=== PATIENT | male | born 1965 | race Caucasian/White ===

== ENCOUNTER → 2023-04-25 | Outpatient (CLI) | payer BC ==
--- NOTE | 2023-04-25 08:51 | XR ---
EXAMINATION TYPE: XR shoulder complete RT DATE OF EXAM: 04/25/2023 8:47 AM INDICATION: Patient age:Male; 58 years old; Reason for study: M25.511 RIGHT SHOULDER PAIN; COMPARISON: None TECHNIQUE: The right shoulder was examined in AP, internally rotated and scapular Y projections. . FINDINGS: No evidence of acute osseous pathology, joint dislocation, or soft tissue swelling. The remaining por tions of the visualized chest are unremarkable. IMPRESSION: No acute osseous pathology.
== END | disposition home or self-care (01) ==
LOC: RADXRMAIN 08:31
PROVIDERS: ATTEND Family Medicine
DX: M25.511 Pain in right shoulder (principal)

== ENCOUNTER → 2023-04-25 | Outpatient (CLI) | payer BC ==
[2023-04-25 13:45] LABS: Basophils # (A) 0.08 X 10*3/uL (0.00-0.10); Basophils % (A) 0.9 %; Eosinophils # (A) 0.17 X 10*3/uL (0.04-0.35); Eosinophils % (A) 1.8 %; HCT 48.6 % (39.6-50.0); Lymphocytes # (A) 2.18 X 10*3/uL (0.90-5.00); Lymphocytes % (A) 23.6 %; MCH 29.5 pg (27.0-32.0); MCHC 32.9 g/dL (32.0-37.0); MCV 89.7 FL (80.0-97.0); Mean Platelet Volume 11.5 FL (9.5-12.2); Monocytes # (A) 0.61 X 10*3/uL (0.20-1.00); Monocytes % (A) 6.6 %; NRBC Per 100 WBC 0 X 10*3/uL (0.00-0.01); Neutrophils # (A) 6.13 X 10*3/uL (1.80-7.70); Neutrophils % (A) 66.4 %; Platelet Count 199 X 10*3/uL (140-440); RBC 5.42 X 10*6/uL (4.40-5.60); RDW 12.8 % (11.5-14.5); WBC 9.23 X 10*3/uL (4.50-10.00)
[2023-04-25 13:54] LABS: ALT 28 U/L (10-49); AST 19 U/L (14-35); Albumin 4.1 g/dL (3.8-4.9); Albumin/Globulin Ratio 1.86 Ratio (1.60-3.17); Alkaline Phosphatase 81 U/L (41-126); BUN/Creat Ratio 12.56 Ratio (12.00-20.00); Blood Urea Nitrogen 11.3 mg/dL (9.0-27.0); Calcium 8.9 mg/dL (8.7-10.3); Carbon Dioxide 23.3 mmol/L (21.6-31.8); Chloride 107 mmol/L (96-109); Chol/HDL Ratio 6.13 Ratio; Globulin 2.2 g/dL (1.6-3.3); Glucose 91 mg/dL (70-110); LDL Cholesterol,Calculated 135.6 mg/dL (0.0-131.0); Potassium 4.4 mmol/L (3.5-5.5); Prostate Specific Antigen 8.24 ng/mL (0.000-3.500); Sodium 141 mmol/L (135-145); Total Bilirubin 0.3 mg/dL (0.3-1.2); Total Protein 6.3 g/dL (6.2-8.2)
== END | disposition home or self-care (01) ==
LOC: LABWHC1 08:05
PROVIDERS: ATTEND Family Medicine
DX: Z00.00 Encounter for general adult medical examination without abnormal findings (principal); Z12.11 Encounter for screening for malignant neoplasm of colon; Z12.5 Encounter for screening for malignant neoplasm of prostate; Z13.29 Encounter for screening for other suspected endocrine disorder; I10 Essential (primary) hypertension; K21.9 Gastro-esophageal reflux disease without esophagitis; F31.30 Bipolar disorder, current episode depressed, mild or moderate severity, unspecified; M25.511 Pain in right shoulder
CPT/HCPCS: 36415; 80053; 80061; 84153; 84443; 85025

== ENCOUNTER 2023-06-29 10:55 | Day surgery (SDC) | payer BC ==
[2023-06-23 08:57] VITALS: BMI 30.1
[2023-06-29 12:24] VITALS: RESP 16; TEMP 97.4
[2023-06-29] MEDS ORDERED: LACTATED RINGERS 1,000 ML IV ONE (12:28)
[2023-06-29] MEDS ORDERED: PROPOFOL 10 MG/ML 20 ML VIAL IV ONE (12:46)
--- NOTE | 2023-06-29 12:59 | P.GSHP ---
History of Present Illness H&P Date: 06/29/23 Chief Complaint: screening colonoscopy this is a 58-year-old male presents today for screening colonoscopy. Patient denies any significant GI complaints. Past Medical History Past Medical History: GERD/Reflux, Hearing Disorder / Deafness, Hyperlipidemia, Hypertension Additional Past Medical History / Comment(s): Some hearing loss. "Grinding in right knee." History of Any Multi-Drug Resistant Organisms: None Reported Past Surgical History: Hernia Repair Past Anesthesia/Blood Transfusion Reactions: No Reported Reaction Past Psychological History: No Psychological Hx Reported Smoking Status: Current every day smoker Past Alcohol Use History: Rare Additional Past Alcohol Use History / Comment(s): Smokes 3 cigarettes a day, started 3 months ago. Past Drug Use History: None Reported - Past Family History Mother Family Medical History: Cancer Additional Family Medical History / Comment(s): Esophageal cancer. Medications and Allergies Home Medications Medication Instructions Recorded Confirmed Type Aspirin [Adult Low Dose Aspirin EC] 81 mg PO DAILY 06/23/23 06/23/23 History Escitalopram Oxalate [Lexapro] 10 mg PO QAM 06/23/23 06/23/23 History Nebivolol HCl 10 mg PO QAM 06/23/23 06/23/23 History Omeprazole [PriLOSEC] 40 mg PO QAM 06/23/23 06/23/23 History Allergies Allergy/AdvReac Type Severity Reaction Status Date / Time No Known Allergies Allergy Verified 06/29/23 12:16 Surgical - Exam Vital Signs Temp Pulse Resp BP Pulse Ox 97.4 F L 86 16 139/82 97 06/29/23 12:17 06/29/23 12:17 06/29/23 12:17 06/29/23 12:17 06/29/23 12:17 - General well developed, well nourished, no distress - Eyes PERRL - ENT normal pinna - Neck no masses - Respiratory normal expansion - Cardiovascular Rhythm: regular - Abdomen Abdomen: soft, non tender Assessment and Plan Assessment: we'll perform screening colonoscopy
--- NOTE | 2023-06-29 13:02 | P.OP ---
Date of Procedure: 06/29/23 Preoperative Diagnosis: screening colonoscopy Postoperative Diagnosis: external hemorrhoids Procedure(s) Performed: colonoscopy Anesthesia: MAC Surgeon: Pankaj Olivares Pathology: none sent Condition: stable Disposition: PACU Operative Findings: internal and external hemorrhoids Description of Procedure: patient's placed on the endoscopy table in the lateral position. He received IV sedation. Digital rectal exam was performed. This revealed hemorrhoids. The flexible colonoscope was then placed patient anus and passed throughout the entire colon. The ileocecal valve was visualized. The cecum, ascending and transverse colon appeared normal. The descending and sigmoid colon appeared normal. The scope was then brought back the rectum and this appeared normal. Scope withdrawn for patient.
[2023-06-29 13:36] VITALS: BP 147/77; PULSE 89
== END 2023-06-29 13:49 | disposition home or self-care (01) ==
LOC: ORWHC2ENDO 10:55
PROVIDERS: ATTEND Surgery
DX: Z12.11 Encounter for screening for malignant neoplasm of colon (principal); K64.4 Residual hemorrhoidal skin tags; K21.9 Gastro-esophageal reflux disease without esophagitis; E78.5 Hyperlipidemia, unspecified; I10 Essential (primary) hypertension; H91.90 Unspecified hearing loss, unspecified ear; F17.210 Nicotine dependence, cigarettes, uncomplicated; F10.90 Alcohol use, unspecified, uncomplicated; Z79.82 Long term (current) use of aspirin; Z79.899 Other long term (current) drug therapy; Z80.8 Family history of malignant neoplasm of other organs or systems; Z98.890 Other specified postprocedural states
CPT/HCPCS: 45378; J2704

== ENCOUNTER 2024-03-19 23:40 | Observation (INO) | payer BC ==
[2024-03-20] MEDS: ONDANSETRON 4 MG/2 ML VIAL IVP STA (00:11)
[2024-03-20] MEDS: HYDROmorphone 1 MG/ML 1 ML SYRINGE IVP STA (00:13)
[2024-03-20 00:18] LABS: Basophils # (A) 0.1 k/uL (0-0.2); Basophils % (A) 1 %; Eosinophils # (A) 0.1 k/uL (0-0.7); Eosinophils % (A) 1 %; HCT 49.8 % (39.0-53.0); HGB 16.4 gm/dL (13.0-17.5); Lymphocytes # (A) 2.4 k/uL (1.0-4.8); Lymphocytes % (A) 19 %; MCH 29.6 pg (25.0-35.0); MCHC 32.8 g/dL (31.0-37.0); MCV 90.3 fL (80.0-100.0); Mean Platelet Volume 8.5; Monocytes # (A) 0.6 k/uL (0-1.0); Monocytes % (A) 5 %; Neutrophils % (A) 72 %; Platelet Count 230 k/uL (150-450); RBC 5.52 m/uL (4.30-5.90); RDW 13.4 % (11.5-15.5); WBC 12.5 k/uL (3.8-10.6)
[2024-03-20 00:30] LABS: ALT 25 U/L (4-49); African American GFR (CKD) >90 (>60 ml/min/1.73 sqM); Albumin 4.4 g/dL (3.5-5.0); Anion Gap 9 mmol/L; Blood Urea Nitrogen 16 mg/dL (9-20); Calcium 9.6 mg/dL (8.4-10.2); Carbon Dioxide 23 mmol/L (22-30); Chloride 107 mmol/L (98-107); Glucose 141 mg/dL (74-99); Lipase 124 U/L (23-300); Magnesium 1.9 mg/dL (1.6-2.3); Non-African American GFR(CKD) >90 (>60 ml/min/1.73 sqM); Sodium 139 mmol/L (137-145); Total Bilirubin 0.8 mg/dL (0.2-1.3); Total Protein 6.9 g/dL (6.3-8.2)
[2024-03-20 00:38] LABS: NT-Pro-B-Type Natriuretic Pept 31 pg/mL
[2024-03-20 00:41] LABS: AST 28 U/L (17-59); Alkaline Phosphatase 72 U/L (38-126); Potassium 4.1 mmol/L (3.5-5.1)
[2024-03-20 01:27] LABS: Partial Thromboplastin Time 26.4 sec (22.0-30.0); Prothrombin Time 10.6 sec (10.0-12.5)
--- NOTE | 2024-03-20 01:41 | CT ---
EXAM: CT Angiography Chest With and without Intravenous Contrast CLINICAL HISTORY: ITS.REASON CT Reason: dissection TECHNIQUE: Axial computed tomographic angiography images of the chest with and without intravenous contrast. CTDI is 30.65 mGy and DLP is 889.95 mGy-cm. This CT exam was performed using one or more of the following dose reduction techniques: automated exposure control, adjustment of the mA and/or kV according to patient size, and/or use of iterative reconstruction technique. MIP reconstructed images were created and reviewed. COMPARISON: None. FINDINGS: Pulmonary arteries: Normal caliber main/central pulmonary arteries. No pulmonary embolism. Aorta: No acute findings. No thoracic aortic aneurysm. No thoracic aortic dissection. Lungs: Central airways are patent. Moderately severe upper lobes predominant centrilobular emphysema. No mass. No consolidation. Pleural space: Unremarkable. No significant effusion. No pneumothorax. Heart: Unremarkable. No cardiomegaly. No significant pericardial effusion. No evidence of RV dysfunction. Bones/joints: No acute or suspicious osseous findings. No vertebral subluxation. Soft tissues: Unremarkable. Lymph nodes: Multiple small mediastinal and bilateral hilar lymph nodes. No lymphadenopathy by CT size criteria. Other findings: Low-density left thyroid lobe nodules.. IMPRESSION: No aortic aneurysm, aortic dissection or pulmonary embolism. Moderately severe centrilobular pulmonary emphysema. Multiple small probably reactive mediastinal and bilateral hilar lymph nodes. EXAM: CT Angiography Abdomen and Pelvis With and without Intravenous Contrast CLINICAL HISTORY: ITS.REASON CT Reason: dissection TECHNIQUE: Axial computed tomographic angiography images of the abdomen and pelvis with intravenous contrast. CTDI is 30.65 mGy and DLP is 889.95 mGy-cm. This CT exam was performed using one or more of the following dose reduction techniques: automated exposure control, adjustment of the mA and/or kV according to patient size, and/or use of iterative reconstruction technique. MIP reconstructed images were created and reviewed. COMPARISON: No relevant prior studies available. FINDINGS: VASCULATURE: Aorta: Mildly tortuous abdominal aorta. No acute findings. No abdominal aortic aneurysm. No dissection. Celiac trunk and mesenteric arteries: No acute findings. No occlusion or significant stenosis. Renal arteries: No acute findings. No occlusion or significant stenosis. Iliac arteries: No acute findings. No occlusion or significant stenosis. ABDOMEN: Liver: Diffuse steatosis. There are several 2-60 mm size cystic lesions seen throughout the liver. No discernible enhancing solid mass. Gallbladder and bile ducts: A somewhat distended gallbladder with mild uniform wall enhancement and small pericholecystic fluid seen (series 501 image 183). No calcified stones. No ductal dilation. Pancreas: Unremarkable. No ductal dilation. No mass. Spleen: A few small subcentimeter splenic cysts. No splenomegaly. Adrenals: Unremarkable. No mass. Kidneys and ureters: A 2 cm left renal cortical cyst. A few tiny/punctate left renal calculi.. No hydronephrosis. No solid mass. No ureteral or bladder calculi identified. Stomach and bowel: A markedly distended stomach filled with ingested food debris, fluid and gas. Small and large bowel is normal in caliber.. No mucosal thickening. PELVIS: Appendix: No findings to suggest acute appendicitis. Bladder: Unremarkable. No mass. Reproductive: Moderately enlarged prostrate. Small rounded glandular calcifications. ABDOMEN and PELVIS: Intraperitoneal space: No significant fluid collection. No free air. Bones/joints: No acute fracture. No dislocation. Multilevel mild degenerative thoracolumbar spondylitic changes. Soft tissues: Unremarkable. A small/moderate size fat-containing left inguinal hernia. Lymph nodes: Unremarkable. No enlarged lymph nodes. IMPRESSION: Unremarkable aorta/arteries arteries of the abdomen and pelvis. No abdominal aortic dissection. A distended gallbladder, with uniform mild wall enhancement and pericholecystic fluid seen. Right upper quadrant abdominal ultrasound recommended. Diffuse hepatic steatosis. Several variable size cysts are seen throughout the liver. Few small splenic cysts. A 2 cm left renal cortical cyst. Few tiny left renal nonobstructive calculi. No hydronephrosis. Moderate prostatomegaly. Recommend A markedly distended stomach, question gastroparesis versus outlet obstruction. The need for nuclear gastric emptying study can be determined clinically. A small/moderate size fat-containing left inguinal hernia.
--- NOTE | 2024-03-20 02:36 | ED ---
Chest Pain HPI - General Chief Complaint: Chest Pain Stated Complaint: CP Time Seen by Provider: 03/19/24 23:50 Source: patient Mode of arrival: ambulatory Limitations: no limitations - History of Present Illness Initial Comments: 59-year-old male presents emergency department reporting chest pain. Reports that it is been going on for the past 3 hours. It is getting worse in intensity. He states it is radiating across his chest and goes straight and through his back. It makes him nauseated and he has been dry heaving. Also reports to diaphoresis. The pain is radiating into his low abdomen. Admits to numbness and tingling in his. No cardiac history. Denies fevers. No history of similar in the past. No other alleviating, precipitating or modifying factors - Related Data Home Medications Medication Instructions Recorded Confirmed Aspirin [Adult Low Dose Aspirin EC] 81 mg PO DAILY 06/23/23 03/20/24 Nebivolol HCl 10 mg PO DAILY 06/23/23 03/20/24 Lansoprazole [Prevacid] 30 mg PO DAILY 03/20/24 03/20/24 Tamsulosin [Flomax] 0.4 mg PO DAILY 03/20/24 03/20/24 Previous Rx's Medication Instructions Recorded Amoxic-Pot Clav 875-125Mg 1 tab PO Q12HR 3 Days #6 tab 03/23/24 [Augmentin 875-125] HYDROcodone/APAP 5-325MG [[place] 1 tab PO Q6HR PRN 3 Days #12 tab 03/23/24 5-325] Allergies Allergy/AdvReac Type Severity Reaction Status Date / Time No Known Allergies Allergy Verified 03/20/24 09:34 Review of Systems ROS Statement: Those systems with pertinent positive or pertinent negative responses have been documented in the HPI. ROS Other: All systems not noted in ROS Statement are negative. Past Medical History Past Medical History: GERD/Reflux, Hearing Disorder / Deafness, Hyperlipidemia, Hypertension Additional Past Medical History / Comment(s): Some hearing loss. "Grinding in right knee." History of Any Multi-Drug Resistant Organisms: None Reported Past Surgical History: Hernia Repair Past Anesthesia/Blood Transfusion Reactions: No Reported Reaction Past Psychological History: No Psychological Hx Reported Smoking Status: Current every day smoker Past Alcohol Use History: Rare Past Drug Use History: None Reported - Past Family History Mother Family Medical History: Cancer Additional Family Medical History / Comment(s): Esophageal cancer. General Exam Limitations: no limitations General appearance: alert, in distress Head exam: Present: atraumatic, normocephalic, normal inspection Eye exam: Present: normal appearance, PERRL, EOMI. Absent: scleral icterus, conjunctival injection, periorbital swelling ENT exam: Present: normal exam, mucous membranes moist Neck exam: Present: normal inspection. Absent: tenderness, meningismus, lymphadenopathy Respiratory exam: Present: normal lung sounds bilaterally. Absent: respiratory distress, wheezes, rales, rhonchi, stridor Cardiovascular Exam: Present: tachycardia GI/Abdominal exam: Present: tenderness Back exam: Present: normal inspection Neurological exam: Present: alert, oriented X3, CN II-XII intact Psychiatric exam: Present: normal affect, normal mood Course Vital Signs 03/19/24 03/20/24 03/20/24 23:41 00:52 01:31 Temperature 98.8 F 98.1 F Pulse Rate 116 H 105 H 101 H Respiratory 20 20 20 Rate Blood Pressure 166/114 126/86 117/69 O2 Sat by Pulse 100 96 94 L Oximetry 03/20/24 03/20/24 03/20/24 02:17 04:43 06:00 Temperature 98.5 F Pulse Rate 98 96 99 Respiratory 19 19 18 Rate Blood Pressure 130/73 122/78 106/75 O2 Sat by Pulse 94 L 96 94 L Oximetry 03/20/24 03/20/24 10:29 11:18 Temperature 98.3 F 98.2 F Pulse Rate 90 82 Respiratory 18 18 Rate Blood Pressure 108/82 107/81 O2 Sat by Pulse 95 96 Oximetry Chest Pain MDM - MDM Was pt. sent in by a medical professional or institution (, PA, CHERRY SORTER, urgent care, hospital, or intermediate...) When possible be specific @ -No Did you speak to anyone other than the patient for history (EMS, parent, family, police, friend...)? What history was obtained from this source @ -No Did you review nursing and triage notes (agree or disagree)? Why? @ -I reviewed and agree with nursing and triage notes Were old charts reviewed (outside hosp., previous admission, EMS record, old EKG, old radiological studies, urgent care reports/EKG's, intermediate records)? Report findings @ -No old charts were reviewed Differential Diagnosis (chest pain, altered mental status, abdominal pain women, abdominal pain men, vaginal bleeding, weakness, fever, dyspnea, syncope, headache, dizziness, GI bleed, back pain, seizure, CVA, palpatations, mental health, musculoskeletal)? @ -Differential Chest Pain: Stable Angina, Unstable Angina, STEMI, NSTEMI Aortic Dissection, Pneumothorax, Musculoskeletal, Esophageal Spasm GERD, Cholecystitis, Pancreatitis, Zoster, this is not meant to be an all-inclusive list. EKG interpreted by me (3pts min.). @ -Yes and demonstrates sinus tachycardia with a rate of 112. IL interval 184. QRS 103. QTc of 391. No acute ST segment elevations or depressions X-rays interpreted by me (1pt min.). @ -None done CT interpreted by me (1pt min.). @ -Yes and demonstrates a markedly distended gallbladder and stomach U/S interpreted by me (1pt. min.). @ -None done What testing was considered but not performed or refused? (CT, X-rays, U/S, labs)? Why? @ -None What meds were considered but not given or refused? Why? @ -None Did you discuss the management of the patient with other professionals (professionals i.e. , PA, CHERRY SORTER, lab, RT, psych nurse, health social work professor, haulage engine operator, teacher, adult probation officer, nurse outreach case manager)? Give summary @ -Spoke with Dr. Colunga for admission Was smoking cessation discussed for >3mins.? @ -No Was critical care preformed (if so, how long)? @ -No Were there social determinants of health that impacted care today? How? (Homelessness, low income, unemployed, alcoholism, drug addiction, transportation, low edu. Level, literacy, decrease access to med. care, fdc, rehab)? @ -No Was there de-escalation of care discussed even if they declined (Discuss DNR or withdrawal of care, Hospice)? DNR status @ -No What co-morbidities impacted this encounter? (DM, HTN, Smoking, COPD, CAD, Cancer, CVA, ARF, Chemo, Hep., AIDS, mental health diagnosis, sleep apnea, morbid obesity)? @ -None Was patient admitted / discharged? Hospital course, mention meds given and route, prescriptions, significant lab abnormalities, going to OR and other pertinent info. @ -Upon arrival patient was seen and evaluated in room 15. Thorough history and physical exam was performed. Patient arrives, clutching his chest reporting significant pain to his arms and back. Because this IV was established and the patient was sent for CT without laboratory results as I am concerned for dissection. Laboratory studies do return and CT results are reviewed. Patient was given pain and nausea medications and does have alleviation in his symptoms. Appears that the patient's first troponin is negative. He does have a distended gallbladder and stomach. He is given an empiric dose of antibiotics to cover for cholecystitis and ultrasound is ordered for the morning. Spoke with Dr. Colunga to admit the patient Undiagnosed new problem with uncertain prognosis? @ -No Drug Therapy requiring intensive monitoring for toxicity (Heparin, Nitro, Insulin, Cardizem)? @ -No Were any procedures done? @ -No Diagnosis/symptom? @ -Acute chest pain, suspected acute cholecystitis, possible gastric outlet obstruction Acute, or Chronic, or Acute on Chronic? @ -Acute Uncomplicated (without systemic symptoms) or Complicated (systemic symptoms)? @ -Complicated Side effects of treatment? @ -No Exacerbation, Progression, or Severe Exacerbation? @ -No Poses a threat to life or bodily function? How? (Chest pain, [place], [place], pneumonia, PE, COPD, DKA, ARF, appy, cholecystitis, CVA, Diverticulitis, Homicidal, Suicidal, threat to staff... and all critical care pts) @ -No Disposition Clinical Impression: Chest pain, Cholecystitis Disposition: ADMITTED IP TO THIS [facility] Condition: Stable Is patient prescribed a controlled substance at d/c from ED?: No Time of Disposition: 02:30 Decision to Admit Reason: Admit from EC Decision Date: 03/20/24 Decision Time: 02:30
[2024-03-20] MEDS ORDERED: NALOXONE 0.4 MG/ML 1 ML VIAL IV PRN (02:41)
[2024-03-20] MEDS: SODIUM CHLORIDE 0.9% 1,000 ML IV SCH (02:52)
--- NOTE | 2024-03-20 06:20 | P.CON ---
Consult Note - . Consult date: 03/20/24 Assessment/Plan:: 59-year-old male presents emergency department reporting chest pain. Reports that it is been going on for the past 3 hours. It is getting worse in intensity. He states it is radiating across his chest and goes straight and through his back. It makes him nauseated and he has been dry heaving. Also reports to diaphoresis. The pain is radiating into his low abdomen. Admits to numbness and tingling in his. No cardiac history. Denies fevers. No history of similar in the past. No other alleviating, precipitating or modifying factors. CT-AP shows gallstones and some free fluid around the Gallbladder. Review of Systems ROS Statement: Those systems with pertinent positive or pertinent negative responses have been documented in the HPI. ROS Other: All systems not noted in ROS Statement are negative. Past Medical History Past Medical History: GERD/Reflux, Hearing Disorder / Deafness, Hyperlipidemia, Hypertension Additional Past Medical History / Comment(s): Some hearing loss. "Grinding in right knee." History of Any Multi-Drug Resistant Organisms: None Reported Past Surgical History: Hernia Repair Past Anesthesia/Blood Transfusion Reactions: No Reported Reaction Past Psychological History: No Psychological Hx Reported Smoking Status: Current every day smoker Past Alcohol Use History: Rare Past Drug Use History: None Reported - Past Family History Mother Family Medical History: Cancer Additional Family Medical History / Comment(s): Esophageal cancer. General Exam VSS General-NAD CVS-RRR Lungs-NLB Abdomen-soft, NTND Ext- no edema 59 year old male presenting with Chest Pain. CT-Abdomen shows Gallstones and Gallbladder Wall Thickening -RUQ US ordered -CLD, NPO/midnight -Zosyn -Pain and Nausea Control -AM labs Serge [facility] [phone]
[2024-03-20] MEDS: PIPERACILLIN-TAZOBACTAM 3.375 GM in SODIUM CHLORIDE 0.9% 100 ML IVPB SCH (08:26)
[2024-03-20] MEDS: PANTOPRAZOLE 40 MG/10 ML VIAL IV SCH (08:26)
--- NOTE | 2024-03-20 10:08 | US ---
EXAMINATION TYPE: US gallbladder DATE OF EXAM: 03/20/2024 COMPARISON: CTa 03/20/2024 CLINICAL INDICATION: Male, 59 years old with history of possible cholecystitis; Possible cholecystiti s. Pain in the abdomen and chest x 11.5 hours. TECHNIQUE: Grayscale and color Doppler imaging of the right upper quadrant. FINDINGS: EXAM MEASUREMENTS: Liver Length: 15.7 cm Gallbladder Wall: 0.38 cm CBD: Obscured Right Kidney: 11.1 x 6.8 x 5.8 cm BINDERY MACHINE SETTER NOTES: Exam is limited due to gas. Pancreas: Hyperechoic. Tail not well seen. Duct seen at body measures 2 mm Liver: Coarse with increased echogenicity. Multiple anechoic and complex areas seen. Largest in left lobe= 1.4 x 1.9 x 1.1 cm. Largest in right lobe= 5.5 x 5.4 x 4.6 cm. Gallbladder: Distended measuring 9.6 cm in length and 4.0 cm in width. *Wall appears slightly thic kened. Appearance of fluid adjacent to gallbladder= 3.8 x 1.0 x 0.4 cm. Evidence for sonographic Heredia's sign: Yes CBD: Obscured Right Kidney: No hydronephrosis or masses seen Cortex appears thin. IMPRESSION: 1. Hepatic cysts 2. Small amount of fluid adjacent to thickened gallbladder wall. Correlate for acalculus cholecystiti s. [facility], Workstation: [facility], 03/20/2024 10:06 AM
--- NOTE | 2024-03-20 11:56 | P.HPIM ---
History of Present Illness H&P Date: 03/20/24 Chief Complaint: Chest and abdominal pain This is a 59-year-old male well-known to my practice. He is a history of hypertension GERD and BPH. He reports yesterday evening approximately 8:30 PM he began experiencing sudden chest and abdominal pain along with back pain. He indicates he was short of breath and feel shaky and sweaty. it Worsened in severity prompting him to came the emergency room and was given pain medication which resolved his symptoms quickly. He reports he still has some abdominal tenderness. This AMA he has no complaints of abdominal tenderness. He denies any chest pain or shortness of breath this time. Review of Systems All systems: negative Past Medical History Past Medical History: GERD/Reflux, Hearing Disorder / Deafness, Hyperlipidemia, Hypertension Additional Past Medical History / Comment(s): Some hearing loss. "Grinding in right knee." History of Any Multi-Drug Resistant Organisms: None Reported Past Surgical History: Hernia Repair Past Anesthesia/Blood Transfusion Reactions: No Reported Reaction Past Psychological History: No Psychological Hx Reported Smoking Status: Current every day smoker Past Alcohol Use History: Rare Past Drug Use History: None Reported - Past Family History Mother Family Medical History: Cancer Additional Family Medical History / Comment(s): Esophageal cancer. Medications and Allergies Home Medications Medication Instructions Recorded Confirmed Type Aspirin [Adult Low Dose Aspirin EC] 81 mg PO DAILY 06/23/23 03/20/24 History Nebivolol HCl 10 mg PO DAILY 06/23/23 03/20/24 History Lansoprazole [Prevacid] 30 mg PO DAILY 03/20/24 03/20/24 History Tamsulosin [Flomax] 0.4 mg PO DAILY 03/20/24 03/20/24 History Allergies Allergy/AdvReac Type Severity Reaction Status Date / Time No Known Allergies Allergy Verified 03/20/24 09:34 Physical Exam Vitals: Vital Signs Temp Pulse Pulse Resp BP BP Pulse Ox 03/20/24 11:33 97.7 F 88 18 132/78 92 L 03/20/24 11:18 98.2 F 82 18 107/81 96 03/20/24 10:29 98.3 F 90 18 108/82 95 03/20/24 06:00 98.5 F 99 18 106/75 94 L 03/20/24 04:43 96 19 122/78 96 03/20/24 02:17 98 19 130/73 94 L 03/20/24 01:31 101 H 20 117/69 94 L 03/20/24 00:52 98.1 F 105 H 20 126/86 96 03/19/24 23:41 98.8 F 116 H 20 166/114 100 Intake and Output 03/19/24 03/20/24 03/20/24 22:59 06:59 14:59 Other: Weight 95.254 kg GENERAL: Well-appearing, well-nourished and in no acute distress. HEAD: Atraumatic, normocephalic. EYES: Pupils equal round and reactive to light, extraocular movements intact, sclera anicteric, conjunctiva are normal. ENT:nares patent, oropharynx clear without exudates. Moist mucous membranes. NECK: Normal range of motion, supple without lymphadenopathy or JVD, no thyromegaly LUNGS: Breath sounds clear to auscultation bilaterally and equal. No wheezes rales or rhonchi. HEART: Regular rate and rhythm without murmurs, rubs or gallops.S1S2 Normal ABDOMEN: Soft, r, normoactive bowel sounds. No guarding, no rebound. No ma sses appreciated. Tenderness to the right upper quadrant and suprapubic area. EXTREMITIES: Normal range of motion, no pitting or edema. No clubbing or cyanosis. NEUROLOGICAL: Cranial nerves II through XII grossly intact. Normal speech, normal gait. PSYCH: Normal mood, normal affect. SKIN: Warm, Dry, normal turgor, no rashes or lesions noted. Results CBC & Chem 7: 03/20/24 00:08 03/20/24 00:08 Labs: Abnormal Lab Results - Last 24 Hours (Table) 03/20/24 03/20/24 Range/Units 00:08 00:08 WBC 12.5 H (3.8-10.6) k/uL Neutrophils # 9.0 H (1.3-7.7) k/uL Glucose 141 H (74-99) mg/dL CT scan - chest: report reviewed US - abdomen: report reviewed Thrombosis Risk Factor Assmnt - DVT/VTE Prophylaxis DVT/VTE Prophylaxis: Low risk, early ambulation encouraged - Choose All That Apply Each Factor Represents 1 point: Age 41-60 years, Obesity (BMI >25) Thrombosis Risk Factor Assessment Total Risk Factor Score: 2 Thrombosis Risk Factor Assessment Level: Low Risk Assessment and Plan (1) Cholecystitis Current Visit: Yes Status: Acute Code(s): K81.9 - CHOLECYSTITIS, UNSPECIFIED SNOMED Code(s): 54118022 (2) Essential (primary) hypertension Current Visit: Yes Status: Acute Code(s): I10 - ESSENTIAL (PRIMARY) HYPERTENSION SNOMED Code(s): 40194260 (3) Gastro-esophageal reflux disease without esophagitis Current Visit: Yes Status: Acute Code(s): K21.9 - GASTRO-ESOPHAGEAL REFLUX DISEASE WITHOUT ESOPHAGITIS SNOMED Code(s): 009215097 (4) BPH loc w urin obs/LUTS Current Visit: Yes Status: Acute Code(s): N40.1 - BENIGN PROSTATIC HYPERPLASIA WITH LOWER URINARY TRACT SYMP SNOMED Code(s): 674574156 (5) Frequency of urination Current Visit: Yes Status: Acute Code(s): R35.0 - FREQUENCY OF MICTURITION SNOMED Code(s): 127474827 (6) Chest pain Current Visit: Yes Status: Acute Code(s): R07.9 - CHEST PAIN, UNSPECIFIED SNOMED Code(s): 01407547 Plan: We will repeat labs in a.m., obtain a chest x-ray, obtain urinalysis, wait on surgical recommendations, continue on Zosyn, will be reevaluated by family medicine in the next 24 hours.
[2024-03-20] MEDS: NEBIVOLOL 5 MG TAB PO SCH (13:15)
[2024-03-20] MEDS: TAMSULOSIN 0.4 MG CAP.ER.24H PO SCH (13:15)
[2024-03-20] MEDS: PANTOPRAZOLE 40 MG TABLET PO SCH (13:15)
[2024-03-20 13:22] LABS: Appearance,Urine Cloudy (Clear); Bilirubin,Urine Negative (Negative); Blood,Urine Negative (Negative); Color,Urine Light Yellow; Glucose,Urine (UA) Negative (Negative); Hyaline Casts,Urine 1 /lpf (0-2); Ketones,Urine Negative (Negative); Leukocyte Esterase,Urine Negative (Negative); Mucus,Urine Rare /hpf; Nitrite,Urine Negative (Negative); PH, Urine 6.5 (5.0-8.0); Protein,Urine Negative (Negative); RBC,Urine 2 /hpf (0-5); Specific Gravity,Urine 1.029 (1.001-1.035); Urobilinogen,Urine <2.0 mg/dL (<2.0); WBC,Urine 2 /hpf (0-5)
--- NOTE | 2024-03-20 13:34 | XR ---
EXAMINATION TYPE: XR chest 2V DATE OF EXAM: 03/20/2024 COMPARISON: None INDICATION: Chest pain TECHNIQUE: Frontal and lateral views of the chest are obtained. FINDINGS: The heart size is normal. The pulmonary vasculature is normal. The lungs are clear. IMPRESSION: 1. No acute pulmonary process. [facility], Workstation: [facility], 03/20/2024 1:31 PM
[2024-03-21 08:49] LABS: Basophils # (A) 0.06 X 10*3/uL (0.00-0.10); Basophils % (A) 0.7 %; Eosinophils # (A) 0.19 X 10*3/uL (0.04-0.35); Eosinophils % (A) 2.2 %; HCT 45.1 % (39.6-50.0); HGB 14.7 g/dL (13.0-17.0); Lymphocytes # (A) 2.33 X 10*3/uL (0.90-5.00); Lymphocytes % (A) 27.4 %; MCH 29.9 pg (27.0-32.0); MCHC 32.6 g/dL (32.0-37.0); MCV 91.9 FL (80.0-97.0); Mean Platelet Volume 11.4 FL (9.5-12.2); Monocytes # (A) 0.65 X 10*3/uL (0.20-1.00); Monocytes % (A) 7.6 %; NRBC Per 100 WBC 0 X 10*3/uL (0.00-0.01); Neutrophils # (A) 5.23 X 10*3/uL (1.80-7.70); Neutrophils % (A) 61.6 %; Platelet Count 186 X 10*3/uL (140-440); RBC 4.91 X 10*6/uL (4.40-5.60); RDW 13.5 % (11.5-14.5)
[2024-03-21 10:00] LABS: ALT 17 U/L (10-49); AST 16 U/L (14-35); Albumin 3.7 g/dL (3.8-4.9); Albumin/Globulin Ratio 1.95 Ratio (1.60-3.17); Alkaline Phosphatase 77 U/L (41-126); BUN/Creat Ratio 8.64 Ratio (12.00-20.00); Bilirubin, Conjugated <0.20 mg/dL (0.20-0.40); Bilirubin,Unconjugated >0.50 mg/dL (0.20-1.00); Blood Urea Nitrogen 9.5 mg/dL (9.0-27.0); Calcium 8.6 mg/dL (8.7-10.3); Carbon Dioxide 22.1 mmol/L (21.6-31.8); Chloride 107 mmol/L (96-109); Globulin 1.9 g/dL (1.6-3.3); Glucose 88 mg/dL (70-110); Lipase 30 U/L (14-60); Magnesium 1.9 mg/dL (1.5-2.4); Potassium 4.1 mmol/L (3.5-5.5); Sodium 139 mmol/L (135-145); Total Bilirubin 0.7 mg/dL (0.3-1.2); Total Protein 5.6 g/dL (6.2-8.2)
--- NOTE | 2024-03-21 13:42 | P.PN ---
Subjective Progress Note Date: 03/21/24 CHIEF COMPLAINT: RUQ abdominal pain HISTORY OF PRESENT ILLNESS: Patient continues to have right upper quadrant abdominal pain with nausea. Does report the pain is slightly less than yesterday. His gallbladder ultrasound had reported small amount of fluid adjacent to thickened gallbladder wall. Correlate for acalculous cholecystitis. CT scan had reported markedly distended stomach, question gastroparesis versus outlet obstruction. Patient reports having bowel movements. Afebrile. WBC is down from 12.5-8.5 Hgb 14.7 platelets 186 sodium 139 potassium 4.1 creatinine 1.1 PHYSICAL EXAM: VITAL SIGNS: Reviewed. GENERAL: Well-developed in no acute distress. ABDOMEN: Soft. Nondistended. Tenderness to palpation right upper quadrant NEUROLOGIC: Alert and oriented. Cranial nerves II through XII grossly intact. ASSESSMENT: 1. Possible acalculous cholecystitis. Ultrasound showing fluid adjacent to thickened gallbladder wall 2. Distended stomach noted on CT scan. Results reviewed with Surgeon. PLAN: -Patient scheduled for laparoscopic cholecystectomy tomorrow with Dr. Stephens Physician Getter Operator note has been reviewed by physician. Signing provider agrees with the documented findings, assessment, and plan of care. Objective - Vital Signs Vital signs: Vital Signs Temp 97.5 F L 03/21/24 12:45 Pulse 70 03/21/24 12:45 Resp 18 03/21/24 12:45 BP 124/76 03/21/24 12:45 Pulse Ox 97 03/21/24 12:45 FiO2 Intake & Output 03/20/24 03/21/24 03/21/24 18:59 06:59 18:59 Intake Total 118 Balance 118 Weight 95.254 kg Intake: Oral 118 Other: Voiding Method Toilet Toilet # Voids 2 1 - Labs CBC & Chem 7: 03/21/24 04:27 03/21/24 04:27 Labs: Abnormal Lab Results - Last 24 Hours (Table) 03/21/24 Range/Units 04:27 BUN/Creatinine Ratio 8.64 L (12.00-20.00) Ratio Calcium 8.6 L (8.7-10.3) mg/dL Total Protein 5.6 L (6.2-8.2) g/dL Albumin 3.7 L (3.8-4.9) g/dL
--- NOTE | 2024-03-21 15:15 | P.PN ---
Subjective Progress Note Date: 03/21/24 H&P Date: 03/20/24 Chief Complaint: Chest and abdominal pain This is a 59-year-old male well-known to my practice. He is a history of hypertension GERD and BPH. He reports yesterday evening approximately 8:30 PM he began experiencing sudden chest and abdominal pain along with back pain. He indicates he was short of breath and feel shaky and sweaty. it Worsened in severity prompting him to came the emergency room and was given pain medication which resolved his symptoms quickly. He reports he still has some abdominal tenderness. This AMA he has no complaints of abdominal tenderness. He denies any chest pain or shortness of breath this time. 03/21/2024 right upper quadrant abdominal pain mildly improved from yesterday. Nauseated, positive bowel movements. Maintained on IV fluid hydration afebrile, normal WBC. CT reported markedly distended stomach question gastroparesis versus outlet obstruction, upper GI ordered. Laparoscopic cholecystectomy pending. Objective - Vital Signs Vital signs: Vital Signs Temp 97.5 F L 03/21/24 12:45 Pulse 70 03/21/24 12:45 Resp 18 03/21/24 12:45 BP 124/76 03/21/24 12:45 Pulse Ox 97 03/21/24 12:45 FiO2 Intake & Output 03/20/24 03/21/24 03/21/24 18:59 06:59 18:59 Intake Total 118 Balance 118 Weight 95.254 kg Intake: Oral 118 Other: Voiding Method Toilet Toilet # Voids 2 1 4 # Bowel Movements 1 - Exam VS: Reviewed GENERAL: Alert and oriented x 3, sitting up in bed, no acute distress HEAD: Atraumatic, normocephalic. EYES: Pupils equal round and reactive to light, extraocular movements intact, sclera anicteric, conjunctiva are normal. ENT:oropharynx clear without exudates. Moist mucous membranes. NECK: supple, no JVD. LUNGS: Unlabored, equal air entry, clear to auscultation. HEART: Regular rate and rhythm without murmurs, rubs or gallops.S1S2 Normal ABDOMEN: Soft, distended, mid epigastric to right upper quadrant tenderness normoactive bowel sounds. No guarding. EXTREMITIES: no pitting or edema. No clubbing or cyanosis. NEUROLOGICAL: Cranial nerves II through XII grossly intact. Normal speech, normal gait. SKIN:no rashes or lesions noted. - Labs CBC & Chem 7: 03/21/24 04:27 03/21/24 04:27 Labs: Abnormal Lab Results - Last 24 Hours (Table) 03/21/24 Range/Units 04:27 BUN/Creatinine Ratio 8.64 L (12.00-20.00) Ratio Calcium 8.6 L (8.7-10.3) mg/dL Total Protein 5.6 L (6.2-8.2) g/dL Albumin 3.7 L (3.8-4.9) g/dL Assessment and Plan Assessment: Cholecystitis, possibly acalculous CT reporting distended stomach, upper GI ordered Essential hypertension Gastroesophageal reflux disease BPH Plan: Continue on current medication regimen ,monitoring and symptomatic treatment. Maintain gentle IV fluid hydration, Zosyn. N.p.o., awaiting laparoscopic cholecystectomy procedure. Pain and antiemetic management. Senna spirometer ordered The impression and plan of care has been dictated as directed. : I performed a history and examination of this patient, discussed the same with the dictator. I agree with the dictator's note ,documented as a scribe. Any additional findings or plans will be noted.
--- NOTE | 2024-03-21 16:08 | FL ---
EXAMINATION TYPE: FL UGI w esophagus DATE OF EXAM: 03/21/2024 COMPARISON: Correlation CT 03/20/2024 HISTORY: 59-year-old male distended stomach on CT, nausea and pain TECHNIQUE: A double contrast esophagram and UGI study is performed. A total of 2 minutes 1 seconds of fluoroscopic time was utilized during procedure and 38 images obtained. Total dose area product (D AP) in uGy*m?, mGy*cm? (or similar): 35. FINDINGS: The swallowing mechanism is normal and hypopharyngeal anatomy is preserved. The cervical and thoracic portions have a normal course and caliber and normal motility. The mucosa is normal and no persistent filling defect is encountered. There is a small hiatal hernia demonstrated. A trace spontaneous episode of gastroesophageal reflux w hen the patient is supine. The stomach shows normal distensibility, peristalsis, and mucosal folds. No evidence of any mass or ulcer disease. The duodenal bulb, sweep, and proximal small bowel loops are unremarkable. IMPRESSION: Incidental small hiatal hernia with trace gastroesophageal reflux. No specific abnormalit y otherwise seen. Satisfactory passage of contrast from the stomach into the duodenum. [facility], , 03/21/2024 4:06 PM
[2024-03-22 08:25] LABS: Basophils # (A) 0.07 X 10*3/uL (0.00-0.10); Basophils % (A) 0.8 %; Eosinophils # (A) 0.14 X 10*3/uL (0.04-0.35); Eosinophils % (A) 1.6 %; HCT 43.6 % (39.6-50.0); HGB 14.4 g/dL (13.0-17.0); Lymphocytes # (A) 2.42 X 10*3/uL (0.90-5.00); Lymphocytes % (A) 28.2 %; MCH 29.6 pg (27.0-32.0); MCV 89.5 FL (80.0-97.0); Mean Platelet Volume 11.1 FL (9.5-12.2); Monocytes # (A) 0.55 X 10*3/uL (0.20-1.00); Monocytes % (A) 6.4 %; NRBC Per 100 WBC 0 X 10*3/uL (0.00-0.01); Neutrophils # (A) 5.36 X 10*3/uL (1.80-7.70); Neutrophils % (A) 62.5 %; Platelet Count 198 X 10*3/uL (140-440); RBC 4.87 X 10*6/uL (4.40-5.60); RDW 13.1 % (11.5-14.5); WBC 8.58 X 10*3/uL (4.50-10.00)
[2024-03-22 08:44] LABS: ALT 16 U/L (10-49); AST 16 U/L (14-35); Albumin 3.5 g/dL (3.8-4.9); Albumin/Globulin Ratio 1.84 Ratio (1.60-3.17); Alkaline Phosphatase 72 U/L (41-126); BUN/Creat Ratio 14.56 Ratio (12.00-20.00); Bilirubin, Conjugated <0.20 mg/dL (0.20-0.40); Bilirubin,Unconjugated >0.20 mg/dL (0.20-1.00); Blood Urea Nitrogen 13.1 mg/dL (9.0-27.0); Calcium 8.1 mg/dL (8.7-10.3); Carbon Dioxide 21.6 mmol/L (21.6-31.8); Chloride 109 mmol/L (96-109); Globulin 1.9 g/dL (1.6-3.3); Glucose 111 mg/dL (70-110); Potassium 3.9 mmol/L (3.5-5.5); Sodium 139 mmol/L (135-145); Total Bilirubin 0.4 mg/dL (0.3-1.2); Total Protein 5.4 g/dL (6.2-8.2)
--- NOTE | 2024-03-22 14:05 | P.PN ---
Subjective Progress Note Date: 03/22/24 H&P Date: 03/20/24 Chief Complaint: Chest and abdominal pain This is a 59-year-old male well-known to my practice. He is a history of hypertension GERD and BPH. He reports yesterday evening approximately 8:30 PM he began experiencing sudden chest and abdominal pain along with back pain. He indicates he was short of breath and feel shaky and sweaty. it Worsened in severity prompting him to came the emergency room and was given pain medication which resolved his symptoms quickly. He reports he still has some abdominal tenderness. This AMA he has no complaints of abdominal tenderness. He denies any chest pain or shortness of breath this time. 03/21/2024 right upper quadrant abdominal pain mildly improved from yesterday. Nauseated, positive bowel movements. Maintained on IV fluid hydration afebrile, normal WBC. CT reported markedly distended stomach question gastroparesis versus outlet obstruction, upper GI ordered. Laparoscopic cholecystectomy pending. 03/22/24 upper GI reported incidental small hiatal hernia with trace gastroesophageal reflux, no specific abnormality otherwise seen. Satisfactory passage of contrast from the stomach into the duodenum. N.p.o. scheduled for laparoscopic cholecystectomy today. Pain controlled. Afebrile, normal WBC. Electrolytes and renal function within normal limits. Denies chest pain, palp itations or shortness of breath. Maintaining O2 sats in the 90s on room air. Objective - Vital Signs Vital signs: Vital Signs Temp 97.9 F 03/22/24 07:00 Pulse 86 03/22/24 07:00 Resp 17 03/22/24 07:00 BP 120/71 03/22/24 07:00 Pulse Ox 95 03/22/24 07:00 FiO2 Intake & Output 03/21/24 03/22/24 03/22/24 18:59 06:59 18:59 Intake Total 500 Balance 500 Intake: Oral 500 Other: Voiding Method Toilet Toilet # Voids 4 2 # Bowel Movements 1 - Exam VS: Reviewed GENERAL: Alert and oriented x 3, sitting up in bed, no acute distress HEAD: Atraumatic, normocephalic. EYES: Pupils equal round and reactive to light, extraocular movements intact, sclera anicteric, conjunctiva normal. NECK: supple, no JVD. LUNGS: Unlabored, equal air entry, clear to auscultation. HEART: S1, S2, regular rate and rhythm without murmurs, rubs or gallops. ABDOMEN: Soft, nondistended, diffuse tenderness, normoactive bowel sounds. No guarding. EXTREMITIES: no pitting or edema. No clubbing or cyanosis. NEUROLOGICAL: Cranial nerves II through XII grossly intact. No focal deficits. SKIN:no rashes or lesions noted. - Labs CBC & Chem 7: 03/22/24 04:19 03/22/24 04:19 Labs: Abnormal Lab Results - Last 24 Hours (Table) 03/22/24 Range/Units 04:19 Glucose 111 H (70-110) mg/dL Calcium 8.1 L (8.7-10.3) mg/dL Total Protein 5.4 L (6.2-8.2) g/dL Albumin 3.5 L (3.8-4.9) g/dL Assessment and Plan Assessment: Cholecystitis, possibly acalculous CT reporting distended stomach, upper GI ordered Essential hypertension Gastroesophageal reflux disease BPH Plan: Continue on current medication regimen ,monitoring and symptomatic treatment. Maintain gentle IV fluid hydration, Zosyn. N.p.o., awaiting laparoscopic cholecystectomy procedure. Pain and antiemetic management. Aggressive pulmonary toileting with incentive spirometer reinforced. The impression and plan of care has been dictated as directed. : I performed a history and examination of this patient, discussed the same with the dictator. I agree with the dictator's note ,documented as a scribe. Any additional findings or plans will be noted.
[2024-03-22] MEDS: ONDANSETRON 4 MG/2 ML VIAL IVP PRN ×2 (14:22→20:49)
[2024-03-22] MEDS: IV FLUID CONTINUATION 1,000 ML IV ONE (14:28)
[2024-03-22] MEDS: HEPARIN SODIUM,PORCINE 5,000 UNIT/ML 1 ML VIAL SQ STA (16:14)
[2024-03-22] MEDS ORDERED: SUCCINYLCHOLINE CHLORIDE 200 MG/10 ML VIAL IV ONE (16:31)
[2024-03-22] MEDS ORDERED: NEOSTIGMINE 1 MG/ML 10 ML VIAL ONE (16:31)
[2024-03-22] MEDS ORDERED: fentaNYL (PF) 50 MCG/ML 2 ML AMP ONE (16:31)
[2024-03-22] MEDS ORDERED: WATER FOR INJECTION, STERILE 10 ML VIAL IV ONE (16:31)
[2024-03-22] MEDS ORDERED: HYDROmorphone (PF) 1 MG/ML ONE (16:31)
[2024-03-22] MEDS ORDERED: LIDOCAINE 1% INJ 10MG/ML (20 ML MDV) ONE (16:31)
[2024-03-22] MEDS ORDERED: ROCURONIUM 10 MG/ML (5 ML VIAL) IV ONE (16:31)
[2024-03-22] MEDS ORDERED: PROPOFOL 10 MG/ML 20 ML VIAL IV ONE (16:31)
[2024-03-22] MEDS ORDERED: GLYCOPYRROLATE 0.2 MG/ML 2 ML VIAL ONE (16:31)
[2024-03-22] MEDS ORDERED: PHENYLEPHRINE 10 MG/ML VIAL ONE (16:31)
[2024-03-22] MEDS ORDERED: MIDAZOLAM 2 MG/2 ML VIAL ONE (16:31)
[2024-03-22] MEDS ORDERED: ePHEDrine 50 MG/ML 1 ML VIAL ONE (16:31)
[2024-03-22] MEDS: LIDOCAINE 1%-EPI 1:100,000 20 ML VIAL SQ ONE (16:55)
[2024-03-22] MEDS: LACTATED RINGERS 1,000 ML IV ONE (17:37)
[2024-03-22] MEDS: INDOCYANINE GREEN 25 MG VIAL IV STA (17:43)
--- NOTE | 2024-03-22 17:48 | P.OP ---
Date of Procedure: 03/22/24 Preoperative Diagnosis: Acute cholecystitis Postoperative Diagnosis: Acute cholecystitis Hepatic cysts Procedure(s) Performed: Robotic cholecystectomy Anesthesia: CRYSTAL Surgeon: Luis Baca Pathology: other (Gallbladder and contents) Condition: stable Disposition: floor Indications for Procedure: 59-year-old male presented with abdominal pain. On workup, concern for cholecystitis based on significantly distended gallbladder and wall thickening of the gallbladder. Risks, benefits and alternatives were presented to the patient and all questions answered. Risks of bleeding, infection, injury to surrounding structures were discussed. He did provide consent prior to attending the operating suite. Operative Findings: Distended gallbladder Edematous gallbladder Significant hepatic cysts Description of Procedure: Patient was brought to the operating suite and placed in supine position on the operating table. Sedation was provided by anesthesia and the patient underwent endotracheal intubation. The patient was prepped and draped in regular sterile fashion. Infraumbilical incision was made and dissection was carried to the fascia. The fascia was incised and an 8 mm trocar was placed. Pneumoperitoneum was achieved. 2 additional 8 mm trocars was placed in the right upper quadrant and 1 was placed in the left upper quadrant. The gallbladder was then grasped and elevated superiorly and retracted laterally. The liver was noted to have significant number of cysts. Dissection was carried along the infundibulum towards the cystic duct and the cystic duct was skeletonized. Similarly, the cystic artery was skeletonized and critical view was obtained. Anatomy was noted using ICG technology. 2 clips were placed proximally and the cystic duct 1 was placed distally and the cystic duct was ligated. Similarly to close were placed proximally on the cystic artery 1 was placed distally and the cystic artery was ligated. Cautery was then used to dissect the gallbladder off the gallbladder fossa. Hemostasis was noted to be maintained. No evidence of bile leakage was noted. Gallbladder was then placed in Endo Catch bag and removed from the abdomen. Suction and irrigation was performed in the right upper quadrant. No bile leakage and no bleeding was noted. The infraumbilical fascial incision site was closed with interrupted 0 Vicryl suture under direct visualization using a [employer] device. Pneumoperitoneum was then released and all ports removed from the abdomen. All incision sites were closed with 4-0 Vicryl subcuticular suture. Sterile dressing was applied. The patient was awakened in the operating suite and taken to postanesthesia care unit in stable condition.
[2024-03-22] MEDS: HYDROmorphone 0.5 MG/0.5 ML SYRINGE IVP STA (18:15)
[2024-03-22] MEDS: HYDROmorphone 1 MG/ML 1 ML SYRINGE IVP PRN (20:49)
[2024-03-23 09:01] VITALS: RESP 16
[2024-03-23 10:52] LABS: Basophils # (A) 0.06 X 10*3/uL (0.00-0.10); Basophils % (A) 0.5 %; Eosinophils # (A) 0.05 X 10*3/uL (0.04-0.35); Eosinophils % (A) 0.4 %; HCT 46.4 % (39.6-50.0); HGB 15.2 g/dL (13.0-17.0); Lymphocytes # (A) 1.76 X 10*3/uL (0.90-5.00); Lymphocytes % (A) 13.4 %; MCH 29.3 pg (27.0-32.0); MCHC 32.8 g/dL (32.0-37.0); MCV 89.4 FL (80.0-97.0); Monocytes # (A) 0.81 X 10*3/uL (0.20-1.00); Monocytes % (A) 6.1 %; NRBC Per 100 WBC 0 X 10*3/uL (0.00-0.01); Neutrophils # (A) 10.44 X 10*3/uL (1.80-7.70); Neutrophils % (A) 79.1 %; Platelet Count 197 X 10*3/uL (140-440); RBC 5.19 X 10*6/uL (4.40-5.60); WBC 13.18 X 10*3/uL (4.50-10.00)
[2024-03-23 11:09] LABS: ALT 30 U/L (10-49); AST 30 U/L (14-35); Albumin 3.8 g/dL (3.8-4.9); Alkaline Phosphatase 87 U/L (41-126); Blood Urea Nitrogen 8.5 mg/dL (9.0-27.0); Calcium 8.4 mg/dL (8.7-10.3); Carbon Dioxide 23.5 mmol/L (21.6-31.8); Chloride 104 mmol/L (96-109); Glucose 87 mg/dL (70-110); Potassium 4.5 mmol/L (3.5-5.5); Sodium 138 mmol/L (135-145); Total Bilirubin 0.7 mg/dL (0.3-1.2); Total Protein 5.8 g/dL (6.2-8.2)
--- NOTE | 2024-03-23 11:16 | P.PN ---
Subjective Progress Note Date: 03/23/24 CHIEF COMPLAINT: Acute cholecystitis HISTORY OF PRESENT ILLNESS: Patient is postop day ##1 status post Robotic cholecystectomy. Patient had a little nausea this morning. He is currently tolerating his clear liquids. He did have flatus yesterday. Denies any vomiting. Afebrile. Vital stable. WBC is up at 13.18 Hgb 15.2 platelets 197 PHYSICAL EXAM: VITAL SIGNS: Reviewed. GENERAL: Well-developed in no acute distress. ABDOMEN: Soft. Nondistended. Incision sites clean dry and intact NEUROLOGIC: Alert and oriented. Cranial nerves II through XII grossly intact. ASSESSMENT: 1. Acute cholecystitis 2. Hepatic cysts PLAN: -Advance diet to low-fat -Patient can be discharged from surgical standpoint Physician Certified Alcohol And Drug Counselor note has been reviewed by physician. Signing provider agrees with the documented findings, assessment, and plan of care. Attestation Patient seen and examined at bedside. States he is slightly nauseous today, however pain is well-controlled. Plan for advancing diet and treating nausea with Zofran. If patient tolerates, able to be discharged later today with foll ow-up as outpatient. Wound care and activity instructions were provided. Luis Baca DO Objective - Vital Signs Vital signs: Vital Signs Temp 98.2 F 03/23/24 07:00 Pulse 99 03/23/24 07:00 Resp 16 03/23/24 07:00 BP 153/79 03/23/24 07:00 Pulse Ox 94 L 03/23/24 07:00 FiO2 Intake & Output 03/22/24 03/23/24 03/23/24 18:59 06:59 18:59 Intake Total 1500 Output Total 7 Balance 1493 Intake: IV 1500 Output: Estimated Blood Loss 7 Other: Voiding Method Urinal # Voids 2 3 - Labs CBC & Chem 7: 03/23/24 05:56 03/23/24 05:56 Labs: Abnormal Lab Results - Last 24 Hours (Table) 03/23/24 03/23/24 Range/Units 05:56 05:56 WBC 13.18 H (4.50-10.00) X 10*3/uL Immature Gran # 0.06 H (0.00-0.04) X 10*3/uL Neutrophils # 10.44 H (1.80-7.70) X 10*3/uL BUN 8.5 L (9.0-27.0) mg/dL BUN/Creatinine Ratio 8.50 L (12.00-20.00) Ratio Calcium 8.4 L (8.7-10.3) mg/dL Total Protein 5.8 L (6.2-8.2) g/dL
[2024-03-23] MEDS: HYDROcodone/APAP 5-325MG 1 EACH TAB PO PRN (12:31)
--- NOTE | 2024-03-23 13:27 | P.DS ---
Providers Date of admission: 03/20/24 02:41 Expected date of discharge: 03/23/24 Attending physician: Eugene Colunga Consults: 03/20/24 02:41 Consult Physician Urgent Consulting Provider: Serge Stephens Consult Reason/Comments: acute cholecystitis Do you want consulting provider notified?: Yes Primary care physician: Eugene Colunga Hospital Course: Acute cholecystitis Hepatic cysts Essential hypertension Gastroesophageal reflux disease BPH Hospital course:This is a 59-year-old male well-known to my practice. He is a history of hypertension GERD and BPH. He reports yesterday evening approximately 8:30 PM he began experiencing sudden chest and abdominal pain along with back pain. He indicates he was short of breath and feel shaky and sweaty. it Worsened in severity prompting him to came the emergency room and was given pain medication which resolved his symptoms quickly. He reports he still has some abdominal tenderness. This AMA he has no complaints of abdominal tenderness. He denies any chest pain or shortness of breath this time. 03/21/2024 right upper quadrant abdominal pain mildly improved from yesterday. Nauseated, positive bowel movements. Maintained on IV fluid hydration afebrile, normal WBC. CT reported markedly distended stomach question gastroparesis versus outlet obstruction, upper GI ordered. Laparoscopic cholecystectomy pending. 03/22/24 upper GI reported incidental small hiatal hernia with trace gastroesophageal reflux, no specific abnormality otherwise seen. Satisfactory passage of contrast from the stomach into the duodenum. N.p.o. scheduled for laparoscopic cholecystectomy today. Pain controlled. Afebrile, normal WBC. Electrolytes and renal function within normal limits. Denies chest pain, palpitations or shortness of breath. Maintaining O2 sats in the 90s on room air. Maintain gentle IV fluid hydration, Zosyn. N.p.o., awaiting laparoscopic cholecystectomy procedure. Pain and antiemetic management. Aggressive pulmonary toileting with incentive spirometer reinforced. Status post robotic cholecystectomy, tolerated procedure well. Mild nausea earlier this morning, passing flatus. Currently tolerating clear liquids and diet has been advanced for lunch. Denies chest pain, palpitations or shortness of breath. Maintaining O2 sats In the 90s on room air. Continues on Zosyn. afebrile, WBC 13.18. Feels much better, pain significantly improved ,tender. Ambulating in hallway, tolerating exertion well denies lightheadedness, dizziness or focal deficits. Patient will be discharged home today in a stable condition with guarded prognosis pending final DC recommendations, pain management and clearance as per general surgery. The impression and plan of care has been dictated as directed. : I performed a history and examination of this patient, discussed the same with the dictator. I agree with the dictator's note ,documented as a scribe. Any additional findings or plans will be noted. Patient Condition at Discharge: Stable Plan - Discharge Summary Discharge Rx Participant: Yes New Discharge Prescriptions: New Amoxic-Pot Clav 875-125Mg [Augmentin 875-125] 1 tab PO Q12HR 3 Days #6 tab HYDROcodone/APAP 5-325MG [Winfield 5-325] 1 tab PO Q6HR PRN 3 Days #12 tab PRN Reason: Pain Continue Lansoprazole [Prevacid] 30 mg PO DAILY Nebivolol HCl 10 mg PO DAILY Aspirin [Adult Low Dose Aspirin EC] 81 mg PO DAILY Tamsulosin [Flomax] 0.4 mg PO DAILY Discharge Medication List Aspirin [Adult Low Dose Aspirin EC] 81 mg PO DAILY 06/23/23 [History] Nebivolol HCl 10 mg PO DAILY 06/23/23 [History] Lansoprazole [Prevacid] 30 mg PO DAILY 03/20/24 [History] Tamsulosin [Flomax] 0.4 mg PO DAILY 03/20/24 [History] Amoxic-Pot Clav 875-125Mg [Augmentin 875-125] 1 tab PO Q12HR 3 Days #6 tab 03/23/24 [Rx] HYDROcodone/APAP 5-325MG [Winfield 5-325] 1 tab PO Q6HR PRN 3 Days #12 tab 03/23/24 [Rx] Follow up Appointment(s)/Referral(s): Eugene Colunga MD [Primary Care Provider] - 1 Week Luis Baca DO [Doctor of Osteopathic Medicine] - 1 Week Activity/Diet/Wound Care/Special Instructions: No driving while taking Winfield No lifting over 10 pounds You may shower. No soaking or tub baths for 2 weeks Very light activity until you are reevaluated at your follow up appointment with your surgeon
[2024-03-23 14:45] VITALS: BP 126/68; PULSE 96; TEMP 98.6
== END 2024-03-23 14:33 | disposition home or self-care (01) ==
LOC: EC 23:40 → 6NMEDSUR 03-20 02:41
PROVIDERS: ADMIT Family Medicine; ATTEND Family Medicine
DX: R07.9 Chest pain, unspecified (principal); K81.1 Chronic cholecystitis; K76.89 Other specified diseases of liver; I10 Essential (primary) hypertension; E78.5 Hyperlipidemia, unspecified; K21.9 Gastro-esophageal reflux disease without esophagitis; N40.1 Benign prostatic hyperplasia with lower urinary tract symptoms; N13.8 Other obstructive and reflux uropathy; F17.200 Nicotine dependence, unspecified, uncomplicated; H91.90 Unspecified hearing loss, unspecified ear; Z79.899 Other long term (current) drug therapy; Z79.82 Long term (current) use of aspirin; Z80.0 Family history of malignant neoplasm of digestive organs
CPT/HCPCS: 47562; 96366 ×5; 96365; 96375; 99285; 36415; 93005; 88304; 83880; 80053 ×3; 80048; 80076 ×2; 83690 ×2; 83735 ×2; 84484; 85025 ×4; 85610; 85730; 81001; 74240; 71046; 76705; 71275; 74174; G0378 ×4; J2543 ×4; J2250; J0330; J1644; J2710; J2405 ×3; J2003; J3010; J1171 ×4; J2704; Q9967; J2371; J1596; J2470

== ENCOUNTER → 2024-12-28 | Outpatient (CLI) | payer BC ==
--- NOTE | 2024-12-28 17:11 | CTL ---
EXAMINATION TYPE: CT Low Dose Lung DATE OF EXAM: 12/28/2024 4:53 PM COMPARISON: None. CLINICAL INDICATION: Male, 59 years old with history of Z12.2 ENCTR SCRN LUNG CANCER , F17.210; HISTO RY OF SMOKING, history of tobacco use. TECHNIQUE: Multiple axial non-contrast scans were obtained from approximately the lung apices through the upper abdomen. Coronal and sagittal reformatted images were obtained. Low dose technique was uti lized. MIP were created on a separate workstation and submitted for review. CT DLP: 83 mGycm, Automated exposure control for dose reduction was used. CT Contrast: Contrast used: None Oral contrast used: None FINDINGS: Lack of intravenous contrast and low dose technique limits the evaluation of the vascular and soft ti ssue structures. LUNGS: No evidence of pulmonary fibrosis. No evidence of focal consolidation, pneumothorax or pleural effusion. Centrilobular emphysema changes. Nodules: RUL: None. RML: None. RLL: None. RAMYA: None. LLL: None. AIRWAY: Patent and unremarkable. HEART: Size within normal limits. No significant coronary artery calcifications. MEDIASTINUM: No gross evidence of adenopathy. VASCULATURE: No aortic aneurysm. MUSCULOSKELETAL: No acute osseous abnormalities SOFT TISSUES/LYMPH NODES: Unremarkable. LOWER NECK: No significant findings. UPPER ABDOMEN:Simple appearing hepatic cysts. IMPRESSION: 1. No clinically significant pulmonary nodules. 2. Moderate to severe emphysema. 3. Simple appearing hepatic cysts. CT LUNG RAD AND CT CHEST RECOMMENDATION: Lung-Rad 1 Negative: Continue annual screening with LDCT in 12 months. S Modifier (other clinically significant findings): None Recommend smoking cessation (if current smoker), or continuation of smoking cessation (if prior smoke r). Annual screening for lung cancer with low-dose computed tomography is recommended in adults ages 55 to 77 years who have a 30 pack-year smoking history and currently smoke or have quit within the pa st 15 years. Screening should be discontinued once a person has not smoked for 15 years or develops a health problem that substantially limits life expectancy or the ability or willingness to have curat trevin lung surgery. Lung rads 2021 [email or web address] [facility], , 12/28/2024 5:09 PM
== END | disposition home or self-care (01) ==
LOC: RADCTMAIN 16:33
DX: Z12.2 Encounter for screening for malignant neoplasm of respiratory organs (principal); F17.210 Nicotine dependence, cigarettes, uncomplicated; J43.2 Centrilobular emphysema; K76.89 Other specified diseases of liver
CPT/HCPCS: 71271

== ENCOUNTER → 2024-12-31 | Outpatient (CLI) | payer BC ==
--- NOTE | 2024-12-31 08:44 | XR ---
EXAMINATION TYPE: XR Hip Bilateral Complete DATE OF EXAM: 12/31/2024 8:32 AM INDICATION: Patient age:Male; 59 years old; Reason for study: [id number], [id number]; H. pain COMPARISON: None. TECHNIQUE: Both hips were examined in the frontal and lateral projections . FINDINGS: No evidence of any acute osseous pathology, joint dislocation, or soft tissue swelling. No significant joint space narrowing or osteophyte formation. IMPRESSION: No acute osseous pathology. [facility], , 12/31/2024 8:42 AM
[2024-12-31 13:24] LABS: Basophils # (A) 0.07 X 10*3/uL (0.00-0.10); Basophils % (A) 0.6 %; Eosinophils # (A) 0.20 X 10*3/uL (0.04-0.35); Eosinophils % (A) 1.8 %; HCT 47.8 % (39.6-50.0); HGB 15.3 g/dL (13.0-17.0); Immature Grans, Automated 0.40 %; Lymphocytes # (A) 2.13 X 10*3/uL (0.90-5.00); Lymphocytes % (A) 19.0 %; MCH 29.0 pg (27.0-32.0); MCHC 32.0 g/dL (32.0-37.0); MCV 90.7 FL (80.0-97.0); Monocytes # (A) 0.75 X 10*3/uL (0.20-1.00); Monocytes % (A) 6.7 %; NRBC Per 100 WBC 0 X 10*3/uL (0.00-0.01); Neutrophils # (A) 8.03 X 10*3/uL (1.80-7.70); Neutrophils % (A) 71.5 %; Platelet Count 192 X 10*3/uL (140-440); RBC 5.27 X 10*6/uL (4.40-5.60); RDW 13.1 % (11.5-14.5); WBC 11.22 X 10*3/uL (4.50-10.00)
[2024-12-31 13:45] LABS: ALT 24 U/L (10-49); AST 19 U/L (14-35); Albumin 4.0 g/dL (3.8-4.9); Albumin/Globulin Ratio 2.22 Ratio (1.60-3.17); Alkaline Phosphatase 76 U/L (41-126); Anion Gap 10.30 mmol/L (4.00-12.00); BUN/Creat Ratio 15.25 Ratio (12.00-20.00); Blood Urea Nitrogen 12.2 mg/dL (9.0-27.0); Calcium 9.0 mg/dL (8.7-10.3); Carbon Dioxide 23.7 mmol/L (21.6-31.8); Chloride 102 mmol/L (96-109); Cholesterol 178.00 mg/dL (0.00-200.00); Globulin 1.8 g/dL (1.6-3.3); Glucose 88 mg/dL (70-110); HDL Cholesterol 31.80 mg/dL (40.00-60.00); LDL Cholesterol,Calculated 127.7 mg/dL (0.0-131.0); Potassium 4.2 mmol/L (3.5-5.5); Prostate Specific Antigen 2.03 ng/mL (0.000-3.500); Sodium 136 mmol/L (135-145); T4, Free (Free Thyroxine) 1.21 ng/dL (0.80-1.80); Total Protein 5.8 g/dL (6.2-8.2); Triglycerides 92.30 mg/dL (0.00-149.00); VLDL Calculation 18.46 mg/dL (5.00-40.00)
== END | disposition home or self-care (01) ==
LOC: LABWHC1 08:13
PROVIDERS: ATTEND Family Medicine
DX: Z00.00 Encounter for general adult medical examination without abnormal findings (principal); Z13.1 Encounter for screening for diabetes mellitus; Z12.5 Encounter for screening for malignant neoplasm of prostate; Z13.220 Encounter for screening for lipoid disorders; Z13.29 Encounter for screening for other suspected endocrine disorder; M25.552 Pain in left hip; M25.551 Pain in right hip; F17.210 Nicotine dependence, cigarettes, uncomplicated; E66.3 Overweight; Z79.899 Other long term (current) drug therapy
CPT/HCPCS: 36415; 73521; 80053; 80061; 83036; 84153; 84439; 85025